=== PATIENT | female | born 1955 | race African-American/Black ===

== ENCOUNTER 2020-07-30 04:47 | Day surgery (SDC) | payer BC ==
[2020-07-29 12:17] VITALS: BMI 25.2
[2020-07-30 11:25] VITALS: BP 118/50; PULSE 60
[2020-07-30 16:35] VITALS: TEMP 97.4
== END 2020-07-30 11:35 | disposition home or self-care (01) ==
LOC: JASU-ENDO 04:47
PROVIDERS: ATTEND Internal Medicine Gastroenterology
PROC: 0DBL8ZX Excision of Transverse Colon, Via Natural or Artificial Opening Endoscopic, Diagnostic (ICD-10-PCS; principal; 2020-07-30 10:15)
DX: Z12.11 Encounter for screening for malignant neoplasm of colon (principal); D12.3 Benign neoplasm of transverse colon; K57.30 Diverticulosis of large intestine without perforation or abscess without bleeding
CPT/HCPCS: 88305-TC

== ENCOUNTER 2022-12-05 05:24 | Day surgery (SDC) | payer BC ==
[2022-12-01 14:41] VITALS: BMI 26.1
[2022-12-05] MEDS ORDERED: LIDOCAINE HCL/PF 2% SDV 5ML VIAL ONE (07:54)
[2022-12-05] MEDS ORDERED: PROPOFOL 20 ML ONE ×2 (07:54→09:41)
[2022-12-05] MEDS ORDERED: SUCCINYLCHOLINE CHLORIDE 200 MG/10 ML SYRINGE ONE (09:41)
[2022-12-05] MEDS ORDERED: MIDAZOLAM HCL 2 MG/2 ML SINGLE DOSE VIAL ONE (09:42)
[2022-12-05] MEDS ORDERED: ceFAZolin SODIUM 1 GM VIAL IVPB ONE (10:41)
[2022-12-05] MEDS ORDERED: oxyCODONE HCL 5 MG TABLET PO PRN (11:37)
[2022-12-05] MEDS ORDERED: PROMETHAZINE HCL 25 MG/1 ML VIAL IVPB PRN (11:37)
[2022-12-05] MEDS ORDERED: ACETAMINOPHEN 1000 MG/100 ML BAG IVPB ONE ×2 (11:37→11:40)
[2022-12-05] MEDS ORDERED: ONDANSETRON 4 MG/2 ML VIAL IVPUSH PRN (11:37)
[2022-12-05] MEDS ORDERED: LACTATED RINGERS SOLUTION 1,000 ML IV SCH (11:45)
[2022-12-05 12:56] VITALS: RESP 20
[2022-12-05 14:09] VITALS: BP 129/60; PULSE 58; TEMP 97.4
== END 2022-12-05 13:45 | disposition home or self-care (01) ==
LOC: JASU-SURG 05:24
PROVIDERS: ATTEND Obstetrics & Gynecology
PROC: 0UB98ZZ Excision of Uterus, Via Natural or Artificial Opening Endoscopic (ICD-10-PCS; principal; 2022-12-05 10:00)
PROC: 0UDB8ZX Extraction of Endometrium, Via Natural or Artificial Opening Endoscopic, Diagnostic (ICD-10-PCS; 2022-12-05 10:00)
DX: N84.0 Polyp of corpus uteri (principal); N95.0 Postmenopausal bleeding
CPT/HCPCS: 88305-TC; 94760